=== PATIENT | female | born 1935 | race Caucasian/White ===

== ENCOUNTER → 2016-04-16 | Outpatient (CLI) | payer MEDICARE, OTHER ==
--- NOTE | 2016-04-16 14:40 | RAD ---
EXAM DESCRIPTION: Abdomen radiography. CLINICAL HISTORY: Abdominal pain. COMPARISON: None. TECHNIQUE: One view. FINDINGS: Bowel gas pattern is non-obstructed. There is no obvious free intraperitoneal air. Visualized segments of the abdominal organs are unremarkable. No suspicious bone lesion or fracture is seen. Severe levoscoliosis noted. IMPRESSION: No large kidney stone on today's study. Small kidney stones could be missed due to extensive overlying air and stool. Electronically signed by: Benson Brasher MD 04/16/2016 14:38
== END ==
LOC: RAD 13:16
PROVIDERS: ATTEND Urology
DX: N20.0 Calculus of kidney (principal)

== ENCOUNTER → 2016-08-28 | Outpatient (CLI) | payer MEDICARE, OTHER | LOC: GRHH 08:56 | PROVIDERS: ATTEND Family Medicine | DX: E55.9 Vitamin D deficiency, unspecified (principal); E53.8 Deficiency of other specified B group vitamins; D64.9 Anemia, unspecified; E78.5 Hyperlipidemia, unspecified; R53.81 Other malaise; N18.2 Chronic kidney disease, stage 2 (mild); R53.82 Chronic fatigue, unspecified ==

== ENCOUNTER → 2016-10-11 | Outpatient (CLI) | payer MEDICARE, OTHER | LOC: GRHH 10:23 | PROVIDERS: ATTEND Family Medicine | DX: R30.9 Painful micturition, unspecified (principal) ==

== ENCOUNTER → 2016-10-30 | Outpatient (CLI) | payer MEDICARE, OTHER | END | disposition home or self-care (01) | LOC: GMAM 14:38 | PROVIDERS: ATTEND Family Medicine | DX: R10.84 Generalized abdominal pain (principal) ==

== ENCOUNTER → 2016-11-02 | Outpatient (CLI) | payer MEDICARE, OTHER ==
--- NOTE | 2016-11-01 07:55 | CT ---
EXAM DESCRIPTION: Abdomen t/Pelvis w/o Contrast CLINICAL HISTORY: 81 years, 81 years, Female, Female, ABD PAIN COMPARISON: None. TECHNIQUE: CT of the abdomen and pelvis is performed according to our non contrast protocol This exam was performed according to our departmental dose-optimization program, which includes automated exposure control, adjustment of the mA and/or kV according to patient size and/or use of iterative reconstruction technique. FINDINGS: The lung bases are clear with mild elevation of the left hemidiaphragm. No infiltrates or effusions or masses noted. The stomach is large and distended with a large air-fluid level without evidence of gastric wall thickening or inflammatory changes extrinsic to the stomach. An element of gastroenteritis or gastroparesis or the possibility of an element of gastric outlet obstruction cannot be excluded. Severe degenerative changes and severe levoscoliosis of the lumbar spine is present without bony destructive changes with intact bony pelvis. Noncontrast imaging of the upper abdomen demonstrates a benign cyst in the medial right lobe of the liver approximately 2 cm in diameter. A small normal spleen is present. The pancreas is atrophic and distorted by the scoliosis. The adrenal glands are unremarkable. The right kidney is essentially unremarkable on noncontrast imaging. On the left fullness in the renal hilum likely represents parapelvic cysts without cortical mass or cyst identified. Hydronephrosis is felt not to be present. The gallbladder is normally distended without stones or wall thickening or ductal dilation. Large and small bowel caliber is normal with surgical absence of the uterus within the pelvis. Moderate left colonic diverticulosis is noted. Localized inflammatory changes in the right lower quadrant or left lower quadrant are not apparent. No abdominal free air or fluid is seen. No abnormality of the anterior abdominal wall is noted. The aorta is tortuous and calcified without significant aneurysm and no retroperitoneal adenopathy seen. IMPRESSION: 1. Large distended stomach with a prominent air-fluid level suggesting an element of gastroenteritis, gastroparesis, or the possibility of a gastric outlet obstruction with no evidence of distal small bowel or colonic obstruction. 2. Marked degenerative disc disease and levoscoliosis of the lumbar spine. 3. Extensive colonic diverticulosis and evidence of prior hysterectomy. 4. Benign right lobe hepatic cyst in prominent cystic changes in the left renal hilum most consistent with multiple parapelvic cysts. Electronically signed by: Ori Ibrahim MD 11/01/2016 7:54 AM CDT
--- NOTE | 2016-11-02 09:23 | US ---
EXAM DESCRIPTION: Gall Bladder CLINICAL HISTORY: 81 years, Female, ABD PAIN COMPARISON: None. FINDINGS: Head and body pancreas unremarkable. Pancreatic tail not well seen. Gallbladder does not demonstrate stones or wall thickening. Common bile duct 4 mm. Intrahepatic ducts not dilated. Liver 13 cm in length with normal echotexture. Benign-appearing hepatic cyst right lobe about 1.7 cm. Right kidney 8.5 cm with some mild chronic appearing cortical thinning. Visualized IVC unremarkable. IMPRESSION: Gallbladder and biliary system unremarkable. Incidental note of benign-appearing hepatic cyst and mild chronic renal cortical thinning. Study otherwise unremarkable Electronically signed by: Kirk Hernandez MD 11/02/2016 9:22 AM CDT
== END | disposition home or self-care (01) ==
LOC: CT 10-31 08:48
PROVIDERS: ATTEND Family Medicine
DX: M54.5 Low back pain (principal); R10.84 Generalized abdominal pain

== ENCOUNTER → 2016-11-06 | Outpatient (CLI) | payer MEDICARE, OTHER ==
--- NOTE | 2016-11-06 16:05 | MRI ---
EXAM DESCRIPTION: Lumbar Spine w/o Contrast CLINICAL HISTORY: 81 years,Female,LUMBAR RADICULOPATHY COMPARISON: None TECHNIQUE: MRI before multiple sequences of the lumbar spine. FINDINGS: The vertebral bodies demonstrate no acute signal changes. There is severe levoscoliosis apex at L3. With a rotary component to the clockwise direction is looking at the axial images. Which is to the left. L1-2 demonstrates a shift to the left of 6 members. And L4 is shifted to the right relative to L5 of 1.5 cm.. Spinal cord normal signal and morphology. Tip of the conus is at L1. Surrounding soft tissues demonstrates scattered edema in the left gluteus muscles partially included in the exam. L5-S1: Disk height is severe loss on the left aspect. There is mild annular disc bulge. The facettes moderate hypertrophy. There is no spinal canal stenosis. There is moderate left neural foraminal stenosis due to more focal disc bulge of about 6 mm and facet osteophyte and none on the right. L4-5: Disk height is severe loss. There is moderate annular disc bulge measuring about 5 mm in thickness. The facettes severely hypertrophic on the left and right with some mild subluxation. There is moderate spinal canal stenosis across the entire width of the spinal canal due to mostly the facet hypertrophy but and the disc bulges well. There is mild left and moderate right neural foraminal stenosis. L3-4: Disk height is severe loss on the right aspect. There is mild annular disc bulge. The facettes moderate to severe bilateral hypertrophy. There is moderate right spinal canal stenosis due to the facet hypertrophy. There is moderate right neural foraminal stenosis. L2-3: Disk height is severe loss disc height on the right. There is mild to moderate annular disc bulge worse in the posterior lateral aspects. The facettes moderate hypertrophy worse on the right. There is no spinal canal stenosis. There is moderate right neural foraminal stenosis. L1-2: Disk height is severe loss. There is mild annular disc bulge. The facettes moderate to mild bilateral facet hypertrophy. There is no spinal canal stenosis. There is mild bilateral neural foraminal stenosis. IMPRESSION: Lumbar spine demonstrates severe levo degenerative scoliosis at the mid levels. This is resulting from severe loss disc at the lower aspects at L2-3 and L3-4. Multiple disc bulges seen throughout the lumbar spine and facet arthropathy which is mostly severe to moderate to severe at the lower 3 lumbar levels. These results in multilevel neural foraminal stenosis as described above and also spinal canal stenosis which is more prominent and moderate at L4-5 and on the right aspect of the lateral recess at L3-4. Electronically signed by: Eliud Granda MD 11/06/2016 4:04 PM CDT
== END ==
LOC: MRI 12:44
PROVIDERS: ATTEND Family Medicine
DX: M54.16 Radiculopathy, lumbar region (principal); M41.9 Scoliosis, unspecified

== ENCOUNTER → 2017-01-25 | Outpatient (CLI) | payer MEDICARE, OTHER | END | disposition home or self-care (01) | LOC: GMAM 11:36 | PROVIDERS: ATTEND Family Medicine | DX: D64.9 Anemia, unspecified (principal); E53.8 Deficiency of other specified B group vitamins; E55.9 Vitamin D deficiency, unspecified ==

== ENCOUNTER 2017-04-09 10:25 | Inpatient (IN) | payer MEDICARE, OTHER ==
--- NOTE | 2017-04-09 12:08 | MRI ---
EXAM DESCRIPTION: Knee,Right: MRI. CLINICAL HISTORY: PAIN IN RIGHT KNEE COMPARISON: Duplex ultrasound evaluation right lower extremity deep veins on the same visit. TECHNIQUE: Multiplanar, high-field MRI, multiple sequences, without contrast: Right knee. FINDINGS: Significant joint space loss lateral compartment with subchondral edema lateral condyle and plateau and marginal spurs. Grade 4 chondrosis lateral plateau and femur. Posterior and downward subluxation of the posterior horn of the lateral meniscus with loss of substance and superior and inferior articular surface tears. Partial bucket-handle tear of the anterior horn which is flipped into the internal aspect of the lateral compartment with remnant remaining in the usual anatomic location. Moderate chondromalacia in the medial compartment with horizontal abnormal signal extending to the superior articular surface in the posterior horn and degenerative signal in the body and anterior horn. Marginal spurs no subchondral edema. Multiple cysts and edema with septations predominantly posterior medial soft tissues. Attenuation of the anterior cruciate ligament with increased fluidlike signal. Taut in extension. Posterior cruciate ligament is unremarkable. Inter-cruciate space effusion. Intermediate signal in the femoral insertion of the medial collateral ligament. Intermediate signal in the femoral insertion of the fibular collateral ligament. Intermediate signal in the popliteus tendon. Intermediate signal in the anterior fibular tibial ligament. Minimal soft tissue edema around the lateral collateral complex. Edema in the origin of the anterior tibialis muscle. No edema in the posterior muscles. Intermediate signal and laxity of the lateral patellar soft tissue restraints. Normal signal in the ITB. Normal signal in the medial patellar soft tissue restraints. Grade 4 chondrosis upper lateral patellar facet and also the superior apex. Grade 4 chondrosis inferior lateral trochlea. Narrowing of the medial and lateral joint space. Suprapatellar effusion with superior patellar plica. Intermediate signal in the distal quadriceps tendon. Edema anterior to the patellar tendon and the tibial tuberosity. Minimal edema in the infrapatellar fat pad. IMPRESSION: 1. Superior and inferior articular surface tears of the posterior horn of the lateral meniscus. Partial bucket-handle tear of the anterior horn displaced into the inner compartment. Grade 4 chondrosis lateral plateau and lateral condyle with significant joint space loss and effusion. Cannot exclude small osteochondral fracture on the lateral plateau. 2. Horizontal superior tear of the posterior horn of the medial meniscus. Moderate chondromalacia and minimal joint space loss. Multiple posterior Marie's cysts or soft tissue edema. 3. Moderate sprain of the anterior cruciate ligament with intercruciate space effusion. Degenerative signal in multiple elements of the lateral collateral ligament complex and also femoral insertion of the medial collateral ligament. 4. Narrowing of the patellofemoral joint. Grade 4 chondrosis on the lateral patellar facet, patellar apex, and lateral femoral trochlea. Degeneration of the distal quadriceps tendon. Suprapatellar effusion and superior patellar plica. Edema anterior to the patellar tendon and in Hoffa's fat pad. Degeneration in the lateral patellofemoral ligament. Electronically signed by: Jeancarlos Chapman MD 04/09/2017 12:06 PM [facility]
--- NOTE | 2017-04-09 12:22 | US ---
EXAM DESCRIPTION: Venous,Lower Extremity RT: ULTRASOUND. CLINICAL HISTORY: PAIN IN RIGHT KNEE COMPARISON: MRI scan right knee without contrast, on the same visit. TECHNIQUE: Two -dimensional and doppler sonographic evaluation of the deep venous system of the right lower extremity. FINDINGS: Echogenic thrombus in the posterior right popliteal vein with partial color flow and venous waveforms seen in the anterior vein. The vein incompletely compresses with the transducer. Similar findings in the right peroneal vein with echogenic thrombus posteriorly and diminished color flow and venous waveforms anteriorly. Incomplete occlusion by the transducer. Doppler evaluation shows normal color flow and normal phasicity and augmentation of the right common femoral vein, femoral vein, greater saphenous vein, and posterior tibial vein. These right lower extremity deep veins showed normal occlusion with transducer pressure. Two-dimensional survey showed no echogenic thrombus within these veins. Elongated serpentine complicated fluid collection in the right popliteal fossa as well as parenchymal edema. The region of involvement measures 6.7 x 3.8 x 3.2 cm. IMPRESSION: 1. Duplex ultrasound evaluation of the right lower extremity deep venous system showing partial thrombus in the right popliteal vein and right peroneal vein with restricted color flow and venous waveforms and incomplete compression/occlusion with the transducer. 2. No deep venous thrombosis in the remaining deep veins of the right lower extremity. 3. Elongated serpiginous Marie's cyst and edema in the right popliteal fossa. CRITICAL COMMUNICATION: The critical value was discussed directly by phone by the can reforming machine operator, PHOENIX Humphrey, with RADHA Thrasher at approximately 1215 hours, on April 09, 2017. Electronically signed by: Jeancarlos Chapman MD 04/09/2017 12:21 PM [facility]
--- NOTE | 2017-04-09 12:44 | HP ---
SUPERVISING PHYSICIAN: Lopez North M.D. CHIEF COMPLAINT: Right knee pain with evidence of DVT on current ultrasound of the right lower extremity. HISTORY OF PRESENT ILLNESS: Ms. Torres is an 81 year-old female patient of Dr. Harris. She has been having some right knee pain and leg pain for over a month that had slowly worsened. She denied any shortness of breath or chest pains. She presented to the clinic today and was seen by Irma Menchaca, who at that point ordered DVT studies of the right leg. Per radiology interpretation there was note that she had a partial thrombus in the right popliteal vein and right peroneal vein. There was no mention of any DVT to the right lower extremity veins other than mentioned above. Also of note was an elongated serpiginous Marie's cyst with some edema to the popliteal fossa. The patient also noted that she had had some right leg swelling that extended from the knee down to her toes when compared to her left leg. She denied any recent trauma or any lengthy episodes of travel. Given the findings of the sonogram, the patient is now going to be admitted directly for initiation of anticoagulation therapy. She was admitted in stable condition. PAST MEDICAL HISTORY: 1. Hyperlipidemia. 2. Chronic renal failure diagnosed in 2012. 3. Renal stones with a previous urethral stent placement and stent removal. 4. Osteopenia. 5. Hypertension with last echocardiogram in June 2015 that showed normal ventricular function with an estimated ejection fraction of 50% showing a grade 1 diastolic dysfunction. 6. Osteoporosis. PAST SURGICAL HISTORY: 1. Hysterectomy in 2002. 2. Bilateral tubal ligation. 3. Last colonoscopy was in [address] Duarte showing polyps and diverticula. 4. Temporary kidney stent placed and removed in October 2015 secondary to kidney stones. HOME MEDICATIONS: 1. Folic acid 1 tablet daily. 2. [place]-3 fatty acids 1 tablet daily. 3. Vitamin D 4,000 units daily. 4. Calcium gluconate 500 mg b.i.d. 5. Aspirin 81 mg daily. 6. Evista 60 mg daily. 7. Lisinopril 10 mg daily. ALLERGIES: NO KNOWN DRUG ALLERGIES. FAMILY HISTORY: Father at age 70, unknown reasons. Mother at age 85 secondary to cancer, unspecified, suspected to be colon. She has 2 brothers with coronary artery disease and back trouble. SOCIAL HISTORY: The patient lives in [place]. She is . She has never smoked tobacco. Denies any alcohol or illicit drug use. REVIEW OF SYSTEMS: CONSTITUTIONAL: Negative for fatigue or fever. HEENT: Negative for nasal congestion, frequent rhinorrhea, hoarseness or sore throat. CARDIOVASCULAR: Negative for any chest pains or orthopnea. RESPIRATORY: Negative for any recent cough, dyspnea or pleuritic chest pains. MUSCULOSKELETAL: As noted in History of Present Illness, positive for knee pain reported in the front and back of the knee worsening with standing. NEUROLOGIC: Denies any dizziness, syncopal episode or neurological deficits. PHYSICAL EXAMINATION: VITAL SIGNS: Temperature 97.8, pulse 78, blood pressure 174/95, respirations 16 , satting 99% on room air. Admission weight is 60.8 kg. GENERAL: On admission, the patient appeared comfortable in no acute distress. Well hydrated, well nourished. Alert and oriented. HEENT: Tympanic membranes are clear bilaterally. Oropharynx was pink, slightly dry mucosal membranes. There were no lesions noted. NECK: Supple, non-tender with full range of motion. No jugular venous distention. CHEST: Lungs were clear to auscultation without any rhonchi, wheezing or rales. CARDIOVASCULAR: Regular rate and rhythm without appreciable murmurs, gallops, or rubs. ABDOMEN: Soft, non-tender. Positive bowel sounds. EXTREMITIES: There was some noted moderate edema over the right knee to the ankle which was nonpitting. She does have some tenderness on the anterior and posterior aspect of the knee on palpation. No obvious bruising or trauma. Pulses distally were strong. Capillary refill was brisk. NEUROLOGIC: She was alert and oriented times three. Facial features were symmetrical. Extraocular movements are within normal limits. There was no notable nystagmus. Cranial nerves II-XII are grossly intact. LABORATORY STUDIES: CBC showed a white count of 5,400 with hemoglobin 10.9, hematocrit 33.6, platelet count 189,000. Differential showed to be within normal limits without a left shift. Chemistries showed normal electrolytes with a just slightly low CO2 at 20, BUN 23, creatinine 1.09, glucose 98. Liver functions were within normal limits. Coagulation studies were pending. Urinalysis shows trace intact blood with trace leukocyte esterase, otherwise microscopic was within normal limits. RADIOLOGY: She had a lower extremity Doppler study of the right leg prior to admission from the clinic which showed per radiology interpretation right lower extremity deep venous system showing partial thrombus in the right popliteal vein and right peroneal vein with a restricted color flow in venous forms incomplete compression with the transducer. Also of note was no deep venous thrombus in the remaining deep veins of the lower extremity. There was mention of an elongated serpiginous Marie's cyst and edema to the right popliteal fossa. She also had a knee MRI that was pending at time of admission. Chest x- ray two view chest per radiology interpretation showed no radiographic evidence of acute cardiopulmonary disease. ASSESSMENT: 1. Acute deep venous thrombus of the right peroneal and popliteal veins without any mention of trauma with the patient showing no evidence of a pulmonary embolism not previously on anticoagulation. 2. Hypertension on Lisinopril. 3. Osteoporosis. 4. History of kidney stones. 5. History of recently being treated for urinary tract infection by Dr. Gross with urinalysis pending at time of admission. 6. Osteoarthritis of the right knee. 7. Marie's cyst of the right knee. 8. Hyperlipidemia. 9. Mild renal insufficiency likely just prerenal azotemia secondary to dehydration. PLAN: The patient will be admitted to the Medical/Surgical floor for initiation of anticoagulant therapy initially with Lovenox 1 mg per kg with anticipation of starting on either Warfarin or Eliquis based off the patient's clinical condition and history, and ability to finance Xarelto. After we verify what her insurance can cover, we will initiate therapy in addition to the Lovenox. Should she need Warfarin, she certainly will be here at least 3 days until she becomes therapeutic or longer if needed until we can transition her home. Hopefully she will be able to transition to Xarelto. Until then, will continue with Lovenox. Her leg will be elevated when in bed. She will have SCDs on the left leg only. Will plan to repeat laboratory studies in the morning as appropriate and reevaluate clinically in the morning. In regards to dehydration, will go ahead and give her a bolus of saline as well as additional fluids and repeat laboratory studies in the morning to further assess her creatinine clearance estimates before starting her on Xarelto. Anticipate length of stay to be 2 to 3 days. Once discharged, she will need close monitoring and followup with Dr. Cornell, her primary care provider, as she will be on senior living anticoagulation therapy. Again until then, will continue to monitor and treat appropriately. #[id number] [facility]
[2017-04-09] MEDS ORDERED: ACETAMINOPHEN 325 MG TAB PO PRN (13:01)
[2017-04-09] MEDS ORDERED: MAGNESIUM HYDROXIDE 30 ML UD PO PRN (13:01)
[2017-04-09] MEDS ORDERED: SODIUM CHLORIDE 0.9% (FLUSH) 10 ML SYG IV PRN (13:01)
[2017-04-09] MEDS ORDERED: ALUM & MAG HYDROX-SIMETHICONE 30 ML UD PO PRN (13:01)
[2017-04-09] MEDS ORDERED: HYDROcodone 5MG/APAP 325MG 1 EA TAB PO PRN (13:01)
[2017-04-09] MEDS ORDERED: IV SET AND CAP CHANGE INJ INJ SCH (13:30)
[2017-04-09] MEDS ORDERED: SODIUM CHLORIDE 0.9% 1000ML 1,000 ML IVS ONE (14:08)
[2017-04-09] MEDS: ENOXAPARIN SODIUM 60 MG/0.6 ML SYG SUBCU SCH (15:15)
--- NOTE | 2017-04-09 15:55 | RAD ---
EXAM DESCRIPTION: Chest,2 Views CLINICAL HISTORY: RLE DVT COMPARISON: January 25, 2017. FINDINGS: Two-view chest x-ray mild enlargement of the cardiac silhouette without pulmonary vascular congestion. There is moderate tortuosity of the thoracic aorta with scattered calcified plaque. Dextrocurvature of the lower thoracic to lumbar spine is seen. The lungs are normally aerated and clear. Costophrenic angles are sharp. Mild disc degenerative changes of the spine are noted. IMPRESSION: No radiographic evidence of acute cardiopulmonary disease. Electronically signed by: Jorge Whiting MD 04/09/2017 3:54 PM [facility]
[2017-04-09] MEDS: KCL 20MEQ/0.45% NS 1,000 ML IVS PRN (17:09)
--- NOTE | 2017-04-09 20:28 | PCM.CORE ---
Physician DVT/VTE - Prophylaxis Currently: Patient already on anticoagulation therapy - xarelto - Nurse DVT Assessment & Total Each Risk Factor Represents 3 Points: Age over 75 years, Hx of DVT/PE Each Risk Factor is 1 Point: Varicose Veins/Edema Legs, Obesity (BMI >25) DVT Assessment Score: 8 - 5 or more Very High Risk Treatments: Early Ambulation *, Sequential Compression Device
[2017-04-10] MEDS: ENOXAPARIN SODIUM 60 MG/0.6 ML SYG SUBCU SCH (02:55)
[2017-04-10] MEDS: KCL 20MEQ/0.45% NS 1,000 ML IVS PRN (03:58)
[2017-04-10] MEDS: ASPIRIN EC 81 MG TAB PO SCH (09:26)
[2017-04-10] MEDS: CALCIUM CARBONATE-VITAMIN D 500 MG TAB PO SCH ×2 (09:34→21:57)
[2017-04-10] MEDS: RIVAROXABAN 10 MG TAB PO SCH (09:34)
[2017-04-10] MEDS: LISINOPRIL 10 MG TAB PO SCH (09:34)
[2017-04-10] MEDS: FOLIC ACID,B6,B12 1 TAB PO SCH (09:35)
[2017-04-10] MEDS: amLODIPine BESYLATE 5 MG TAB PO SCH (09:35)
[2017-04-10] MEDS: FISH OIL 1,200 MG CAP PO SCH (09:36)
[2017-04-10] MEDS: CHOLECALCIFEROL 2,000 IU TAB PO SCH (10:00)
[2017-04-10] MEDS: SODIUM CHLORIDE 0.9% (FLUSH) 10 ML SYG IV SCH ×2 (10:01→21:57)
[2017-04-10] MEDS: NON-FORMULARY MEDICATION 1 EA MIS (Raloxifene Hcl [Evista] 60 MG) PO SCH (10:08)
--- NOTE | 2017-04-10 14:52 | PN ---
SUPERVISING PHYSICIAN: Lopez North MD DATE: 04/10/17 SUBJECTIVE: The patient is doing well clinically. She is not having any significant shortness of breath, no chest pain. She continues to have her leg elevated which is showing good improvement with decreasing swelling. I did found out that her insurance does cover either Xarelto or Eliquis and after discussion with Dr. Cornell, the patient will be started on Xarelto today. I will attempt to get a starter pack from Dr. Cornell's office. OBJECTIVE: VITAL SIGNS: Temperature 98.5. Pulse 79. Blood pressure 151/75. Radiographs 16. Saturation 99% on room air. I&Os show positive balance of 1245 with 1345 in. She has had multiple voids that were not measured. Weight 61.6 kg. CHEST: Lungs clear to auscultation bilaterally. HEART: Regular rate and rhythm without appreciable murmurs, gallops, or rubs. ABDOMEN: Soft, nontender. Positive bowel sounds. EXTREMITIES: Right lower extremity still shows some swelling compared to the left leg, but decreased from admission. Pulses distally are strong with capillary refill brisk. NEUROLOGIC: Alert and oriented times three. LABORATORY: CBC showed a white count of 4,300 with hemoglobin 10.7, hematocrit 32.9 which is stable. Platelet count 185,000. Differential within normal limits. Coagulation studies today showed normal PT, PT-T. Chemistries showed normal electrolytes with BUN 18, creatinine 1.02, which is improved from admission, with calcium 9.2. Urinalysis showed just a trace of blood and trace of leukocyte esterase, otherwise within normal limits both on microscopic and chemical analysis. ASSESSMENT: 1. Deep venous thrombus of the right lower extremity with evidence of a thrombus within the right peroneal and popliteal veins on ultrasound with no mention of trauma with the patient showing no evidence of a pulmonary embolism and not previously on anticoagulation. She has previously been on Evista which could be a possible etiology of the thrombus. Therefore, we have stopped this medication as well as she will need further studies to further rule out any underlying malignancy such as CT of the lungs, abdomen which can be done on discharge. 2. Hypertension on lisinopril, requiring addition of amlodipine. 3. Osteoporosis, osteopenia, having previously been on Evista with this being stopped as possible etiology of her venous thrombus. 4. History of kidney stones. 5. History of recently being treated for urinary tract infection by Dr. Gross with urinalysis at this time showing no evidence of underlying infection. 6. Osteoarthritis of the right knee. 7. Marie's cyst of the right knee. 8. Hyperlipidemia. 9. Mild renal insufficiency likely prerenal azotemia secondary to mild dehydration as she showed good improvement with IV fluids. PLAN: The patient has a normal PT, PT-T and has been on Lovenox now for 24 hours and will be started on Xarelto today. I did discuss with Dr. Cornell in regard to getting her a starter pack and continuing with this as an outpatient. I also discussed her blood pressure and as Dr. Cornell requested, we will add amlodipine 2.5 mg and monitor closely. At some point, she will need sentinel studies to rule out underlying malignancy as possible source of the thrombus to include a CT of the head, chest and abdomen which all could be done in followup through Dr. Cornell's office. She continues to keep her leg elevated. I discussed at length with her the [facility] treatment plan and that there is no contraindication to her being mobile, just to keep her leg elevated when she is not walking to assist with the edema. She is very aware of the side effects of Xarelto and is happy with the choice with having previously had concerns with being on warfarin as she has a daughter who is on dialysis and has been on warfarin in the past. I saline locked her. She is showing good hydration status. Again, we will anticipate discharging tomorrow with a Xarelto starter pack with close clinical followup with Dr. Cornell within the next 2 weeks or sooner if needed as well as recommendations for CT scans of the head, chest and abdomen as mentioned above to further rule out any source of malignancy for possible etiology of her underlying DVT as well as we have stopped her Evista as this could be an etiology of the thrombus. Until discharge, we will continue to monitor the patient closely and treat appropriately. #[id number] [facility]
[2017-04-11] MEDS: FISH OIL 1,200 MG CAP PO SCH (08:43)
[2017-04-11] MEDS: SODIUM CHLORIDE 0.9% (FLUSH) 10 ML SYG IV SCH (08:43)
[2017-04-11] MEDS: LISINOPRIL 10 MG TAB PO SCH (08:44)
[2017-04-11] MEDS: FOLIC ACID,B6,B12 1 TAB PO SCH (08:44)
[2017-04-11] MEDS: ASPIRIN EC 81 MG TAB PO SCH (08:44)
[2017-04-11] MEDS: CHOLECALCIFEROL 2,000 IU TAB PO SCH (08:44)
[2017-04-11] MEDS: RIVAROXABAN 10 MG TAB PO SCH (08:45)
[2017-04-11] MEDS: amLODIPine BESYLATE 5 MG TAB PO SCH (08:45)
[2017-04-11] MEDS: NON-FORMULARY MEDICATION 1 EA MIS (Raloxifene Hcl [Evista] 60 MG) PO SCH (08:49)
[2017-04-11] MEDS ORDERED: CALCIUM CARBONATE-VITAMIN D 500 MG TAB PO SCH (09:00)
[2017-04-11 10:48] VITALS: BP 122/73; TEMP 97.9; O2SAT 98
--- NOTE | 2017-04-11 11:46 | DS ---
SUPERVISING PHYSICIAN: Lopez North MD DISCHARGE DIAGNOSIS: 1. Deep venous thrombus of the right lower extremity with evidence of a thrombus within the right peroneal and popliteal veins on ultrasound with no mention of trauma with the patient showing no evidence of a pulmonary embolism and not previously on anticoagulation. She has previously been on Evista which could be a possible etiology of the thrombus. 2. Hypertension on lisinopril and amlodipine. 3. Osteoporosis, osteopenia, having previously been on Evista. 4. History of kidney stones. 5. History of recently being treated for urinary tract infection by sameer Chavez. 6. Osteoarthritis of the right knee. 7. Marie's cyst of the right knee. 8. Hyperlipidemia. 9. Mild renal insufficiency, improved. HISTORY OF PRESENT ILLNESS: This an 81-year-old female patient that was seen by nurse practitioner, Irma Menchaca in clinic. She is a patient of Dr. Harris. She had been having some right knee pain and right leg pain for over a month that had slowly worsened. She denied any shortness of breath or chest pains. She presented to the clinic and DVT studies were ordered of the right leg. Per radiology interpretation there was note that she had a partial thrombus in the right popliteal vein and right peroneal vein. There was no mention of any DVT to the right lower extremity veins other than mentioned above. There was also an elongated serpiginous Marie's cyst with some edema to the popliteal fossa. The patient stated she had had some right leg swelling that extended from the knee down to her toes when compared to her left leg. She denied any recent trauma or any lengthy episodes of travel. Due to the findings of the sonogram, she was admitted to the hospital for initiation of anticoagulation therapy. HOSPITAL COURSE: The patient was started on Lovenox and transitioned to Xarelto. Her Lovenox has been discontinued. She was also given amlodipine due to her elevated blood pressures and her vital signs have stabilized. She has had some mild to that right leg, but has been well controlled with pain medications. Her Evista was stopped and at this point, she can be discharged home. DISCHARGE PLAN: The patient will be discharged home in stable condition. She is to resume her previous activity as tolerated as well as her diet. I have discontinued her Evista and she has been given a starter pack for Xarelto that will include 15 mg twice a day for 21 days and then she will increase to 20 mg daily. She has a followup appointment with Dr. Cornell on April 16, 2017, with consideration of getting a CT scan of the head, chest and abdomen to rule out any source of malignancy for possible etiology of her underlying DVT and/or she could see hematology as an outpatient. She is to return to the hospital or call Dr. Cornell's office with any further complications or problems. I have instructed her on signs and symptoms of increased bleeding and her questions were answered. DISCHARGE MEDICATIONS: 1. Calcium gluconate. 2. Aspirin. 3. [place] 3 fatty acids. 4. Lisinopril. 5. Folbee. 6. Vitamin D. 7. Amlodipine. 8. Xarelto starter pack. 9. Tramadol. Dr. North is the collaborating physician and available for consultation. #[id number] [facility]
== END 2017-04-11 12:10 | disposition home or self-care (01) | DRG 300 ==
LOC: CT 10:25 → MS 12:43
PROVIDERS: ADMIT Nurse Practitioner Family; ATTEND Nurse Practitioner Acute Care
DX: I82.431 Acute embolism and thrombosis of right popliteal vein (principal); I13.0 Hypertensive heart and chronic kidney disease with heart failure and stage 1 through stage 4 chronic kidney disease, or unspecified chronic kidney disease; I50.32 Chronic diastolic (congestive) heart failure; E86.0 Dehydration; T38.5X5A Adverse effect of other estrogens and progestogens, initial encounter; M81.0 Age-related osteoporosis without current pathological fracture; M85.80 Other specified disorders of bone density and structure, unspecified site; M17.11 Unilateral primary osteoarthritis, right knee; E78.5 Hyperlipidemia, unspecified; N28.9 Disorder of kidney and ureter, unspecified; M71.21 Synovial cyst of popliteal space [Baker], right knee; N18.9 Chronic kidney disease, unspecified; Y92.009 Unspecified place in unspecified non-institutional (private) residence as the place of occurrence of the external cause; Z95.828 Presence of other vascular implants and grafts; Z79.82 Long term (current) use of aspirin

== ENCOUNTER → 2017-05-21 | Outpatient (CLI) | payer MEDICARE, OTHER | LOC: GMAM 18:17 | PROVIDERS: ATTEND Family Medicine | DX: N39.0 Urinary tract infection, site not specified (principal) ==

== ENCOUNTER → 2017-08-13 | Outpatient (CLI) | payer MEDICARE, OTHER | LOC: GMAM 11:00 | PROVIDERS: ATTEND Family Medicine | DX: E53.8 Deficiency of other specified B group vitamins (principal); E55.9 Vitamin D deficiency, unspecified ==

== ENCOUNTER → 2017-09-16 | Outpatient (CLI) | payer MEDICARE, OTHER ==
--- NOTE | 2017-09-16 21:01 | US ---
EXAM DESCRIPTION: Venous,Lower Extremity RT: ULTRASOUND. CLINICAL HISTORY: DVT COMPARISON: None Available. TECHNIQUE: Pedroza-scale and doppler sonographic evaluation of the deep venous system of the right lower extremity. FINDINGS: Doppler evaluation shows normal color flow and normal phasicity and augmentation of the right common femoral vein, femoral vein, popliteal vein, greater saphenous vein, peroneal, and posterior tibial vein. The right lower extremity deep veins showed normal occlusion with transducer pressure. Pedroza-scale survey showed no echogenic thrombus within these veins. Complex serpiginous fluid collection in the popliteal fossa. Dimensions 7.1 x 3.6 x 3.2 cm.. IMPRESSION: 1. Duplex ultrasound evaluation of the right lower extremity deep venous system showing no evidence of thrombosis. 2. Serpiginous somewhat complex Marie's cyst in the popliteal fossa measuring 7.1 cm. Electronically signed by: Jeancarlos Chapman MD 09/16/2017 9:00 PM CDT
== END ==
LOC: US 09:54
PROVIDERS: ATTEND Family Medicine
DX: M71.21 Synovial cyst of popliteal space [Baker], right knee (principal); I80.201 Phlebitis and thrombophlebitis of unspecified deep vessels of right lower extremity

== ENCOUNTER → 2018-04-21 | Outpatient (CLI) | payer MEDICARE, OTHER | LOC: GMAM 10:35 | PROVIDERS: ATTEND Family Medicine | DX: E53.8 Deficiency of other specified B group vitamins (principal); E55.9 Vitamin D deficiency, unspecified ==

== ENCOUNTER → 2018-04-23 | Outpatient (CLI) | payer MEDICARE, OTHER | LOC: GMAM 14:22 | PROVIDERS: ATTEND Family Medicine | DX: D64.9 Anemia, unspecified (principal) ==

== ENCOUNTER → 2018-10-16 | Outpatient (CLI) | payer MEDICARE, OTHER | LOC: GMAM 10:46 | PROVIDERS: ATTEND Family Medicine | DX: E53.8 Deficiency of other specified B group vitamins (principal); E55.9 Vitamin D deficiency, unspecified ==

== ENCOUNTER → 2019-11-04 | Outpatient (CLI) | payer MEDICARE, OTHER | LOC: GMAM 14:56 | PROVIDERS: ATTEND Family Medicine | DX: D64.9 Anemia, unspecified (principal); E78.2 Mixed hyperlipidemia; I10 Essential (primary) hypertension; E55.9 Vitamin D deficiency, unspecified ==

== ENCOUNTER 2020-01-06 17:15 | Observation (INO) | payer MEDICARE, OTHER ==
--- NOTE | 2020-01-06 17:25 | HP ---
SUPERVISING PHYSICIAN: Ori Cornell MD CHIEF COMPLAINT: Increasing shortness of breath. HISTORY OF PRESENT ILLNESS: Ms. Torres is an 84-year-old female patient with past medical history of significant coronary artery disease, hypertension, chronic renal failure who was diagnosed with COVID pneumonitis today in the clinic. Her is currently in the hospital with COVID pneumonia. The family reports that since her has been in the hospital, she has significantly declined. They notified Dr. Cornell and he requested the patient come to the clinic to be tested. After examination and testing, it was decided the patient would at least be in observation overnight to ensure that she was not acutely showing any worsening signs or symptoms secondary to COVID infection. She was directly admitted in stable condition. PAST MEDICAL HISTORY: 1. Coronary artery disease with 3 stents. 2. Hypertension. 3. Chronic renal failure. 4. History of renal stones with stent placement. 5. Osteopenia. 6. Anxiety and depression. 7. Iron deficiency anemia. PAST SURGICAL HISTORY: 1. Hysterectomy. 2. Bilateral tubal ligation. 3. Bilateral cataracts. 4. Previous kidney stents due to multiple kidney stones. 5. Heart caths and 3 stent placements in [place] in 2018. MEDICATIONS: Awaiting updated list from the clinic for updated list in medical records. ALLERGIES: NO KNOWN DRUG ALLERGIES. FAMILY HISTORY: Father at age 70, unknown cause of . Mother at age 85 secondary to colon cancer. She had 2 brothers, one with history of Parkinson's and coronary artery disease. She has one sister who has had a stroke and myocardial infarction and is . She has a 34-year-old son with congestive heart failure. Another son is from complications of HIV. She has 3 daughters. One had a stroke at age 59. 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 She denies any tobacco, alcohol or illicit drug use. REVIEW OF SYSTEMS: CONSTITUTIONAL: Positive for general malaise, weakness. No reported fevers at home. HEENT: Negative for headaches, sore throats, earaches, nasal congestion. RESPIRATORY: Positive for increasing shortness of breath and coughing. No reported wheezing. CARDIOVASCULAR: Negative for chest pain, palpitations or syncopal episodes. GASTROINTESTINAL: Positive for decreased appetite. Negative for nausea, vomiting or abdominal pain. GENITOURINARY: Negative for dysuria, hematuria, polyuria. MUSCULOSKELETAL: Positive for generalized weakness. No reported arthralgias. SKIN: Negative for lesions, rashes, moles or unexplained changes. NEUROLOGIC: Negative for ataxia, seizures. Positive for ongoing weakness. No reported focal deficits. HEMATOLOGIC: Negative for easy bruising, unexplained bleeding or transfusion reactions. PHYSICAL EXAMINATION: VITAL SIGNS: Temperature 99.6, pulse 69, blood pressure 130/72, respirations 19, saturation 98% on room air. GENERAL: The patient is resting comfortably in no acute distress. RESPIRATORY: Lung sounds are fairly clear, just a little diminished towards the bases. No rales, rhonchi or wheezing. CARDIOVASCULAR: Regular rate and rhythm without any appreciable murmurs, gallops, or rubs. ABDOMEN: Soft, nontender. Positive bowel sounds. EXTREMITIES: There is no edema. NEUROLOGIC: The patient is alert and oriented times three. SKIN: Warm, pink and dry. LABORATORY: White count 3,300 with low lymphocytes. Hemoglobin 9.7, hematocrit 29.6, platelet count 220,000. Coagulation studies showed fibrinogen 346 with D- dimer 370. Chemistries showed normal C-reactive protein. Troponin less than 0.02. Electrolytes all within normal limits. BUN 22, creatinine 1.14. Ferritin 6.9. Urinalysis pending. MICROBIOLOGY: No specimens pending. RADIOLOGY: Chest x-ray pending. ASSESSMENT: 1. COVID-19 infection with developing generalized weakness and concerns for developing worsening symptoms. 2. History of coronary artery disease. 3. History of hypertension. 4. History of chronic renal failure. 5. History of anxiety and depression. PLAN: Ms. Torres is going to be placed in observation overnight with close monitor and recheck of labs. She is living essentially by herself since her is in the hospital and he has COVID. She did test positive for COVID today. We will be fairly aggressive with her treatment given her age and underlying comorbidities. We will start her on Decadron, Rocephin, azithromycin and Remdesivir. We will hold off on large amount of fluids and give those cautiously if needed. I anticipate length of stay to be at least 1 to 2 days. Once her medications are updated and verified, we will resume those as appropriate to care. Until the patient can transition to outpatient management, we will continue to monitor and treat as needed. #[id number] MTDD
[2020-01-06] MEDS ORDERED: ACETAMINOPHEN 325 MG TAB PO PRN (17:42)
[2020-01-06] MEDS ORDERED: ONDANSETRON INJ 4 MG/2 ML VIAL IV PRN (17:42)
[2020-01-06] MEDS ORDERED: SODIUM CHLORIDE 0.9% (FLUSH) 10 ML SYG IV PRN (17:42)
[2020-01-06] MEDS ORDERED: ALBUTEROL INHALER 64 PUFF/8GM INH PRN (17:46)
[2020-01-06] MEDS ORDERED: REMDESIVIR 200 MG in SODIUM CHLORIDE 0.9% 250ML 250 ML IVPB ONE (17:47)
[2020-01-06] MEDS ORDERED: AZITHROMYCIN IV 500 MG in SODIUM CHLORIDE 0.9% 250ML 250 ML IVPB SCH (18:00)
[2020-01-06] MEDS ORDERED: cefTRIAXone SODIUM 1 GM in SODIUM CHL 0.9% 50ML MIN-BAG+ 50 ML IVPB SCH (18:00)
[2020-01-06] MEDS ORDERED: IV SET AND CAP CHANGE INJ INJ SCH (18:00)
[2020-01-06] MEDS ORDERED: AZITHROMYCIN IV 500 MG VIAL IVPB ONE (19:26)
[2020-01-06] MEDS ORDERED: cefTRIAXone SODIUM 1 GM VIAL ONE (19:26)
[2020-01-06] MEDS ORDERED: SODIUM CHL 0.9% 50ML MIN-BAG+ 50 ML IVPB ONE (19:27)
[2020-01-06] MEDS ORDERED: SODIUM CHLORIDE 0.9% 250ML 250 ML ONE ×2 (19:27→19:29)
[2020-01-06] MEDS: DEXAMETHASONE INJ 10 MG/ML VIAL IV SCH (20:13)
[2020-01-06] MEDS: ALBUTEROL INHALER 64 PUFF/8GM INH SCH (20:15)
[2020-01-07] MEDS ORDERED: cefTRIAXone SODIUM 1 GM in SODIUM CHL 0.9% 50ML MIN-BAG+ 50 ML IVPB SCH (01:52)
[2020-01-07] MEDS ORDERED: PANTOPRAZOLE SODIUM IV 40 MG VIAL IV SCH (06:30)
--- NOTE | 2020-01-07 07:06 | RAD ---
CLINICAL HISTORY: COVID pneumonitis COMPARISON: 04/09/2018. TECHNIQUE: XR CHEST 1 VIEW 01/07/2020 7:00 AM CDT FINDINGS: The heart is borderline in size. Lungs are clear without consolidation, atelectasis, mass or edema. There is no pleural effusion. There is no pneumothorax. There are no acute osseous findings. IMPRESSION: No pneumonia. Electronically signed by: Olvin Vizcarra MD 01/07/2020 7:04 AM CDT
[2020-01-07] MEDS ORDERED: CLOPIDOGREL 75 MG TAB ONE (08:34)
[2020-01-07] MEDS ORDERED: ISOSORBIDE MONONITRATE (IMDUR) 30 MG TAB ONE (08:34)
[2020-01-07] MEDS ORDERED: ESCITALOPRAM 10 MG TAB ONE (08:34)
[2020-01-07] MEDS: ALBUTEROL INHALER 64 PUFF/8GM INH SCH ×4 (08:55→21:30)
[2020-01-07] MEDS: [UNRECOGNIZED DRUG - OTHER] PO SCH (09:27)
[2020-01-07] MEDS: B COMPLEX PO SCH (09:27)
[2020-01-07] MEDS: FOLIC ACID PO SCH (09:27)
[2020-01-07] MEDS: REMDESIVIR 100 MG in SODIUM CHLORIDE 0.9% 250ML 250 ML IVPB SCH (09:28)
[2020-01-07] MEDS: DEXAMETHASONE INJ 10 MG/ML VIAL IV SCH (09:28)
[2020-01-07] MEDS: CLOPIDOGREL 75 MG TAB PO SCH (09:29)
[2020-01-07] MEDS: ISOSORBIDE MONONITRATE (IMDUR) 30 MG TAB PO SCH (09:29)
[2020-01-07] MEDS: ACETAMINOPHEN 325 MG TAB PO SCH ×2 (09:29→20:05)
[2020-01-07] MEDS: ESCITALOPRAM 10 MG TAB PO SCH (09:29)
[2020-01-07] MEDS: BIFIDOBACTERIUM INFANTIS 4 MG CAP PO SCH (09:33)
[2020-01-07] MEDS: ENOXAPARIN SODIUM 40 MG/0.4 ML SYG SUBCU SCH (09:33)
[2020-01-07] MEDS: DORZOLAMIDE 2% OPHTH SOL 1 DROP LEFT_EYE SCH ×2 (09:33→22:16)
[2020-01-07] MEDS ORDERED: ATORVASTATIN 10 MG TAB ONE (19:51)
[2020-01-07] MEDS ORDERED: METOPROLOL SUCCINATE XL 25 MG TAB PO ONE (19:51)
[2020-01-07] MEDS ORDERED: ASPIRIN (ENTERIC COATED) 81 MG TAB PO ONE (19:51)
[2020-01-07] MEDS ORDERED: cefTRIAXone SODIUM 1 GM VIAL ONE (19:53)
[2020-01-07] MEDS ORDERED: AZITHROMYCIN IV 500 MG VIAL IVPB ONE (19:53)
[2020-01-07] MEDS ORDERED: SODIUM CHL 0.9% 50ML MIN-BAG+ 50 ML IVPB ONE (19:54)
[2020-01-07] MEDS ORDERED: SODIUM CHLORIDE 0.9% 250ML 250 ML ONE (19:54)
[2020-01-07] MEDS: ASPIRIN (ENTERIC COATED) 81 MG TAB PO SCH (20:05)
[2020-01-07] MEDS: METOPROLOL SUCCINATE XL 25 MG TAB PO SCH (20:05)
[2020-01-07] MEDS: ATORVASTATIN 10 MG TAB PO SCH (20:05)
[2020-01-07] MEDS: cefTRIAXone SODIUM 1 GM in SODIUM CHL 0.9% 50ML MIN-BAG+ 50 ML IVPB SCH (21:53)
[2020-01-07] MEDS: AZITHROMYCIN IV 500 MG in SODIUM CHLORIDE 0.9% 250ML 250 ML IVPB SCH (23:07)
[2020-01-08] MEDS ORDERED: PANTOPRAZOLE SODIUM TAB 40 MG PO ONE (02:58)
[2020-01-08] MEDS: PANTOPRAZOLE SODIUM TAB 40 MG PO SCH (05:54)
[2020-01-08] MEDS ORDERED: SODIUM CHLORIDE 0.9% 250ML 250 ML ONE (07:06)
[2020-01-08] MEDS: ACETAMINOPHEN 325 MG TAB PO SCH ×3 (07:22→20:55)
[2020-01-08] MEDS ORDERED: POTASSIUM CHLORIDE 20 MEQ TAB PO ONE (08:27)
--- NOTE | 2020-01-08 08:53 | PN ---
SUPERVISING PHYSICIAN: Ori Cornell MD DATE: 01/07/20 SUBJECTIVE: The patient is feeling pretty good. She has not had any shortness of breath. She is not complaining of abdominal pain, no nausea or vomiting, she just says she is weak. OBJECTIVE:: VITAL SIGNS: Temperature 98, pulse 88, blood pressure 150/73, respirations 20, oxygen saturation 99% on room air.' GENERAL: The patient seems to be resting comfortably, no acute distress. He is alert. CHEST: Clear to auscultation, sill diminished towards the bases. HEART: Regular rate and rhythm. ABDOMEN: Soft, non-tender, positive bowel sounds. EXTREMITIES: Without edema. NEUROLOGIC: He is alert and oriented x3. LABORATORY: White count shows to be at 1,500 with differential showing to be without a left shift. Coagulation studies show a D-dimer of 437, chemistries today show BUN 21, creatinine 0.93, potassium normal. Carbon dioxide a little low at 19, glucose 121. Liver functions and magnesium all within normal limits. C-reactive protein remains normal at less than 0.8. Urinalysis last night showed a trace of leukoesterase with 20 to 30 WBCs, 3 to 5 epithelials, no bacteria, moderate amount of blood. MICROBIOLOGY: Urine cultures pending. RADIOLOGY: Chest x-ray today per radiology interpretation shows no pneumonia. ASSESSMENT: 1. COVID-19 infection with developing generalized weakness and concerns for developing worsening symptoms. 2. History of coronary artery disease. 3. History of hypertension. 4. History of chronic renal failure. 5. History of anxiety and depression. PLAN: Will continue current plan at this point with assist from Dr. North, azithromycin and Remdesivir. DVT prophylaxis per protocol, aggressive pulmonary hygiene. I anticipate he should hopefully be able to go home within the next 48 hours, depends on how well she does and what her condition is when he is discharged. Until then, we will continue to monitor. [facility][id number] [facility]
[2020-01-08] MEDS: DEXAMETHASONE INJ 10 MG/ML VIAL IV SCH (09:38)
[2020-01-08] MEDS: REMDESIVIR 100 MG in SODIUM CHLORIDE 0.9% 250ML 250 ML IVPB SCH (09:38)
[2020-01-08] MEDS: ENOXAPARIN SODIUM 40 MG/0.4 ML SYG SUBCU SCH (09:38)
[2020-01-08] MEDS: BIFIDOBACTERIUM INFANTIS 4 MG CAP PO SCH (09:39)
[2020-01-08] MEDS: CLOPIDOGREL 75 MG TAB PO SCH (09:39)
[2020-01-08] MEDS: ISOSORBIDE MONONITRATE (IMDUR) 30 MG TAB PO SCH (09:39)
[2020-01-08] MEDS: ESCITALOPRAM 10 MG TAB PO SCH (09:39)
[2020-01-08] MEDS: ALBUTEROL INHALER 64 PUFF/8GM INH SCH ×4 (09:45→21:07)
[2020-01-08] MEDS: FOLIC ACID PO SCH (09:56)
[2020-01-08] MEDS: B COMPLEX PO SCH (09:56)
[2020-01-08] MEDS: [UNRECOGNIZED DRUG - OTHER] PO SCH (09:56)
[2020-01-08] MEDS: DORZOLAMIDE 2% OPHTH SOL 1 DROP LEFT_EYE SCH ×2 (09:57→21:12)
--- NOTE | 2020-01-08 14:42 | CT ---
EXAM DESCRIPTION: Chest w/o Contrast CLINICAL HISTORY: 84 years Female, covid TECHNIQUE: This exam was performed according to our departmental dose-optimization program, which includes automated exposure control, adjustment of the mA and/or kV according to patient size and/or use of iterative reconstruction technique. COMPARISON: Same day chest radiograph FINDINGS: The thyroid gland is unremarkable. No axillary adenopathy. Dense coronary artery and mitral annular calcifications. No pericardial effusion. No evidence of acute process in the visualized upper abdomen. No mediastinal adenopathy. No pneumothorax. No pleural effusion. Scattered peripheral groundglass airspace opacities. No focal consolidation. No suspicious pulmonary nodule. Calcified granuloma. No acute or suspicious osseous abnormality. Scattered degenerative changes present. IMPRESSION: Scattered peripheral groundglass airspace opacities which are most likely infectious. Consider viral etiologies. Electronically signed by: Grayson Irwin MD 01/08/2020 2:40 PM CDT
--- NOTE | 2020-01-08 16:47 | PN ---
SUPERVISING PHYSICIAN: Ori Cornell MD DATE: 01/08/20 SUBJECTIVE: The patient is sitting up in bed. She feels much better and is less weak than she has been although she is somewhat apprehensive about getting around. I have ordered physical therapy on her. OBJECTIVE: VITAL SIGNS: Temperature 98, heart rate 73, blood pressure 152/72, respiratory rate 18, O2 saturation 98% on room air. LABORATORY: WBCs 3,500 with hemoglobin 9.3, hematocrit 28.6. Fibrinogen is 297. D-dimer 418. Sodium 142, potassium 3.3, chloride 115. BUN 22, creatinine 0.95. Calcium 8.8, magnesium 1.8, creatinine kinase 147, C-reactive protein less than 0.8. Urine culture preliminary study shows gram negative rods. Chest CT shows scattered peripheral airspace opacities which are most likely infectious. Consider viral etiologies. All other labs and films have been reviewed via the EMR. ASSESSMENT: 1. COVID-19 infection with developing generalized weakness and concerns for developing worsening symptoms. 2. History of coronary artery disease. 3. History of hypertension. 4. History of chronic renal failure. 5. History of anxiety and depression. PLAN: We will continue present supportive care. I have given her some potassium supplementation and have ordered COVID lab for in the morning. I discussed her discharge plan with Dr. Cornell most likely for tomorrow. If she is stable, we will discharge her home. #[id number] MTDD
[2020-01-08] MEDS: ASPIRIN (ENTERIC COATED) 81 MG TAB PO SCH (20:54)
[2020-01-08] MEDS: ATORVASTATIN 10 MG TAB PO SCH (20:55)
[2020-01-08] MEDS: METOPROLOL SUCCINATE XL 25 MG TAB PO SCH (20:55)
[2020-01-08] MEDS: cefTRIAXone SODIUM 1 GM in SODIUM CHL 0.9% 50ML MIN-BAG+ 50 ML IVPB SCH (21:24)
[2020-01-08] MEDS: AZITHROMYCIN IV 500 MG in SODIUM CHLORIDE 0.9% 250ML 250 ML IVPB SCH (23:17)
[2020-01-09] MEDS: PANTOPRAZOLE SODIUM TAB 40 MG PO SCH (06:05)
[2020-01-09] MEDS: ACETAMINOPHEN 325 MG TAB PO SCH ×2 (07:05→08:56)
[2020-01-09] MEDS: DEXAMETHASONE INJ 10 MG/ML VIAL IV SCH (08:52)
[2020-01-09] MEDS: ENOXAPARIN SODIUM 40 MG/0.4 ML SYG SUBCU SCH (08:52)
[2020-01-09] MEDS: BIFIDOBACTERIUM INFANTIS 4 MG CAP PO SCH (08:53)
[2020-01-09] MEDS: CLOPIDOGREL 75 MG TAB PO SCH (08:53)
[2020-01-09] MEDS: [UNRECOGNIZED DRUG - OTHER] PO SCH (08:53)
[2020-01-09] MEDS: FOLIC ACID PO SCH (08:53)
[2020-01-09] MEDS: REMDESIVIR 100 MG in SODIUM CHLORIDE 0.9% 250ML 250 ML IVPB SCH (08:53)
[2020-01-09] MEDS: ESCITALOPRAM 10 MG TAB PO SCH (08:53)
[2020-01-09] MEDS: B COMPLEX PO SCH (08:53)
[2020-01-09] MEDS: ISOSORBIDE MONONITRATE (IMDUR) 30 MG TAB PO SCH (08:53)
[2020-01-09] MEDS: DORZOLAMIDE 2% OPHTH SOL 1 DROP LEFT_EYE SCH (08:56)
[2020-01-09] MEDS: ALBUTEROL INHALER 64 PUFF/8GM INH SCH ×2 (09:10→12:30)
[2020-01-09] MEDS: POTASSIUM CHLORIDE 20 MEQ TAB PO SCH ×2 (10:21→13:14)
[2020-01-09] MEDS ORDERED: POTASSIUM CHLORIDE 20 MEQ TAB ONE ×2 (10:21→12:47)
[2020-01-09] MEDS ORDERED: MAGNESIUM SULFATE PREMIX 2GM 2 GM in PREMIX BAG 1 BAG IVPB ONE (12:26)
[2020-01-09] MEDS ORDERED: MAGNESIUM SULFATE PREMIX 2GM 50 ML IVPB ONE (12:46)
[2020-01-09] MEDS ORDERED: INFLUENZA VIRUS VACC (ADULT) 0.5 ML SYG IM ONE (13:15)
[2020-01-09 14:05] VITALS: BP 150/71; TEMP 98.1; O2SAT 99
--- NOTE | 2020-01-10 15:47 | DS ---
SUPERVISING PHYSICIAN: Ori Cornell M.D. DISCHARGE DIAGNOSIS: 1. COVID-19 pneumonitis with generalized weakness. 2. Coronary artery disease. 3. Hypertension. 4. Chronic renal failure. 5. History of anxiety and depression. HISTORY OF PRESENT ILLNESS: This is an 84-year-old female patient who has a past medical history of coronary artery disease, hypertension and chronic renal failure. She was diagnosed with COVID pneumonitis on the day of admission at the clinic. Her was currently in the hospital with COVID pneumonia. Over the days prior to her diagnoses she had significantly declined with some extreme weakness. Her primary care physician, Dr. Cornell, requested that the patient be admitted to the hospital in stable condition and to be treated for COVID pneumonitis. HOSPITAL COURSE: The patient was placed in observation with the COVID guidelines being started. Her labs were monitored closely. She was also started on the pneumonia guidelines with azithromycin and Rocephin. She was placed on Lovenox for DVT prophylaxis as well as Decadron, IV steroids and Remdesivir. A small amount of fluids were given judiciously and she responded to treatment and improved during her hospital stay. Her weakness improved to the point that she actually was evaluated by physical therapy and they felt that she was stable to be discharged home. Her vital signs remained stable. She was not on oxygen. Her lab improved daily. She will be discharged home today in stable condition. LABORATORY: WBCs on admission were 1.5, were then 3.5 and today are 4.3. Hemoglobin and hematocrit are stable at 9.8 and 30.1. PTT on admission was 21.7 and then was 22.1. Fibrinogen was stable at 307, D-dimer on admission was 437 and is now 332. Sodium is stable at 139. Potassium started at 3.8 and went down to 3.3 and has required supplementation over the last several days. Chloride was initially 112 and went to 115 and is now 112. Carbon dioxide is 18, BUN 24, creatinine 0.98. Glucose are in between 86 and 121, calcium was stable at 8.6, magnesium initially was 1.9 and went down to 1.7 and required supplementation. Liver enzymes were within normal limits. LD was 108 to 155, creatinine kinase was 147, troponin 0.03. C reactive protein was less than 0.8. Urinalysis showed moderate urine blood with trace of urine leukocyte esterase and 20 to 30 urine RBCs. Urine culture was positive for Escherichia coli and was pansensitive. RADIOLOGY: Chest x-ray showed no pneumonia. Chest CT showed scattered peripheral ground glass airspace opacities which are most likely infectious. Consider viral etiologies. DISCHARGE PLAN: The patient will be discharged home in stable condition. She is to resume her previous diet and increase her activity as tolerated. She has a followup appointment with Dr. Cornell via Telehealth on 01/13/20 at 10:45 AM. In addition to her routine medications, she is to take: 1. Align. 2. 7 days of Cefdinir. 3. 6 days of Decadron. 4. 30 days of Eliquis. 5. Guaifenesin. 6. Albuterol treatments. 7. 4 days of azithromycin. She is to return to the hospital or followup with Dr. Cornell for any problems or complications. DISCHARGE MEDICATIONS: 1. Aspirin. 2. Lexapro. 3. Plavix. 4. Lipitor. 5. Isosorbide mononitrate. 6. Tylenol. 7. Metoprolol. 8. Dorzolamide ophthalmic. 9. Acetaminophen. 10. B complex. 11. Vitamin C vitamins. 12. Align. 13. Cefdinir. 14. Decadron. 15. Eliquis. 16. Guaifenesin. 17. Albuterol. 18. Azithromycin. #[id number] [facility]
== END 2020-01-09 14:50 | disposition home or self-care (01) ==
LOC: MS 17:15 → INTOOBSV 17:15
PROVIDERS: ADMIT Nurse Practitioner Family; ATTEND Nurse Practitioner Acute Care
DX: U07.1 COVID-19 (principal); J12.89 Other viral pneumonia; R53.1 Weakness; I25.10 Atherosclerotic heart disease of native coronary artery without angina pectoris; I12.9 Hypertensive chronic kidney disease with stage 1 through stage 4 chronic kidney disease, or unspecified chronic kidney disease; N18.9 Chronic kidney disease, unspecified; F41.9 Anxiety disorder, unspecified; F32.9 Major depressive disorder, single episode, unspecified; M85.80 Other specified disorders of bone density and structure, unspecified site; Z79.02 Long term (current) use of antithrombotics/antiplatelets; Z79.01 Long term (current) use of anticoagulants; Z79.82 Long term (current) use of aspirin; Z79.899 Other long term (current) drug therapy; Z95.5 Presence of coronary angioplasty implant and graft; Z87.442 Personal history of urinary calculi
CPT/HCPCS: 96366 ×3; 96367 ×2; 96365; 96375 ×2; 96376 ×4; 96372 ×3; J0696 ×3; 90674; J7050 ×12; J1650 ×3; J1100 ×4; J0456 ×3; A4216; J3475; 85379 ×4; 80048 ×2; 80053 ×3; 87086; 36415 ×4; 85384 ×4; 81001; 80076; 86140 ×4; 85025 ×4; 82550 ×2; 87186; 82728; 83615 ×4; 83735 ×5; 85730 ×2; 84484 ×2; 87088; 71045; 71250; 94760; 94664; 94640 ×10; 94762 ×4; 97116; 97162; G0378

== ENCOUNTER 2020-01-10 07:27 | Emergency (ER) | payer MEDICARE, OTHER ==
[2020-01-10] MEDS ORDERED: SODIUM CHLORIDE 0.45% 1000ML 1,000 ML IVS ONE (09:04)
--- NOTE | 2020-01-10 09:05 | CT ---
EXAM DESCRIPTION: Abdoment/Pelvis w/o Contrast CLINICAL HISTORY: 84 years Female lower abd pain at Lovenox sites COMPARISON: 10/31/2016 TECHNIQUE: Multiple contiguous axial CT slices were taken from the diaphragms to the pubic symphysis without intravenous contrast. This exam was performed according to our departmental dose-optimization program, which includes automated exposure control, adjustment of the mA and/or kV according to patient size and/or use of iterative reconstruction technique. FINDINGS: Within the left rectus muscle sheath. There is a 6.2 x 6.0 x 14.3 cm heterogeneously hyperdense fluid collection, consistent with an intramuscular hematoma. There is some surrounding subcutaneous fat stranding along the left anterior abdominal wall. The lung bases are clear. Visualized cardiomediastinal structures are normal. No suspicious hepatic lesions. 2.8 cm cyst in the right hepatic lobe. Gallbladder, bile ducts, pancreas, spleen and adrenals are normal. Bilateral renal cortical thinning. Prominent bilateral parapelvic cysts. No urinary tract calculi. The ureters and bladder are normal. A small amount of extraperitoneal/preperitoneal fluid is seen within the ventral pelvis. The uterus is absent. No adnexal masses. Hiatal hernia. The small bowel is normal. The appendix is normal. The large bowel is normal. No ascites, pneumatosis or pneumoperitoneum. No lymphadenopathy. The aorta and IVC are normal. Scoliosis and spondylosis. Bilateral hip arthrosis. No acute osseous abnormality. IMPRESSION: 1. Large acute 14.3 cm left rectus muscle sheath hematoma. Electronically signed by: David Clifford MD 01/10/2020 9:04 AM CDT
[2020-01-10] MEDS ORDERED: HYDROcodone 7.5MG/APAP 325MG 1 EA TAB PO ONE (09:18)
[2020-01-10] MEDS ORDERED: SODIUM BICARBONATE VIAL 50 MEQ/50 ML VIAL ONE (09:57)
--- NOTE | 2020-01-10 15:13 | ED.PDOC ---
History of Present Illness - General Chief Complaint: Abdominal Pain Stated Complaint: Abd pain and side lying nausea Time Seen by Provider: 01/10/20 07:28 Source: patient, family Exam Limitations: no limitations - History of Present Illness Initial Comments: The patient is a 84-year-old female presented emergency room secondary to abdominal pain. The patient had some abdominal pain yesterday but it worsened overnight. It is worse with any movement. No nausea or vomiting. No constipation. No diarrhea. She does have a known rectal prolapse. Discomfort is worse in the left mid to lower abdomen centrally. Timing/Duration: other - About 18 hours Severity: moderate Improving Factors: immobilization Worsening Factors: movement Associated Symptoms: denies symptoms Allergies/Adverse Reactions: Allergies NO KNOWN ALLERGY Allergy (Verified 01/10/20 07:48) Home Medications: Ambulatory Orders Aspirin [Aspirin Adult Low Dose] 81 mg PO BEDTIME 10/31/15 Acetaminophen [Tylenol] 650 mg PO BEDTIME 01/06/20 Atorvastatin Calcium [Lipitor] 10 mg PO BEDTIME 01/06/20 Clopidogrel Bisulfate [Plavix] 75 mg PO DAILY 01/06/20 Dorzolamide HCl 1 drop LEFT_EYE BID 01/06/20 Escitalopram [Lexapro] 10 mg PO DAILY 01/06/20 Isosorbide Mononitrate [Isosorbide Mononitrate ER] 30 mg PO DAILY 01/06/20 Metoprolol Succinate [Metoprolol Succinate ER] 25 mg PO BEDTIME 01/06/20 Acetaminophen [Tylenol] 325 mg PO DAILY 01/07/20 Acetaminophen [Tylenol] 650 mg PO ACBK 01/07/20 B-Complex W/ C & Folic Acid [Super B-Complex/Vitamin C] 1 tablet PO DAILY 01/07/20 Albuterol Inhaler [Ventolin Hfa Inhaler] 2 puff INH PRN PRN inh 01/09/20 Albuterol Inhaler [Ventolin Hfa Inhaler] 2 puff INH RTQID inh 01/09/20 Apixaban [Eliquis] 5 mg PO BID #60 tab 01/09/20 Azithromycin Tab [Zithromax Tab] 250 mg PO QD #4 tab 01/09/20 Bifidobacterium Infantis [Align] 4 mg PO DAILY cap 01/09/20 Cefdinir 300 mg PO BID #14 capsule 01/09/20 Dexamethasone Tab [Decadron Tab] 4 mg PO DAILY #6 tab 01/09/20 Guaifenesin [Mucinex] 600 mg PO BID #30 tab 01/09/20 Review of Systems - Review of Systems Constitutional: States: no symptoms reported EENTM: States: no symptoms reported Respiratory: States: no symptoms reported Cardiology: States: no symptoms reported Gastrointestinal/Abdominal: States: abdominal pain Genitourinary: States: no symptoms reported Musculoskeletal: States: no symptoms reported Skin: States: no symptoms reported Neurological: States: no symptoms reported Endocrine: States: no symptoms reported Hematologic/Lymphatic: States: no symptoms reported All other Systems: No Change from Baseline Past Medical History (General) - Patient Medical History Hx Seizures: No Hx Stroke: No Hx Dementia: No Hx Asthma: No Hx of COPD: No Hx Cardiac Disorders: Yes - stents Hx Congestive Heart Failure: No Hx Pacemaker: No Hx Hypertension: Yes Hx Thyroid Disease: No Hx Diabetes: No Hx Gastroesophageal Reflux: No Hx Renal Disease: No Hx Cancer: No Hx of HIV: No Hx Hepatitis C: No Hx MRSA: No Surgical History: Hysterectomy, other - Vaccination History Hx Tetanus, Diphtheria Vaccination: No Hx Influenza Vaccination: Yes Hx Pneumococcal Vaccination: No - Social History Hx Tobacco Use: No Hx Alcohol Use: No Hx Substance Use: No Hx Substance Use Treatment: No Hx Depression: No Hx Physical Abuse: No Hx Emotional Abuse: No - Female History Patient is a Female of Child Bearing Age (10 -59 yrs old): No Patient : No Family Medical History - Family History Mother Family History: No Known Living Status: Physical Exam - Physical Exam General Appearance: Alert, No apparent distress Eye Exam: bilateral normal Ears, Nose, Throat: hearing grossly normal, normal pharynx Neck: non-tender, supple Respiratory: lungs clear, normal breath sounds, no respiratory distress, no accessory muscle use Cardiovascular/Chest: normal peripheral pulses, regular rate, rhythm, no edema Peripheral Pulses: radial,right: 2+, radial,left: 2+ Gastrointestinal/Abdominal: other - See history of present illness. Rectal Exam: other - Rectal prolapse is present but no evidence of significant pain with it. This does appear chronic. 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, alert, normal mood/affect, oriented x 3 Skin Exam: pallor - Mildly pale Comments: Vital Signs - 24 hr 01/10/20 01/10/20 01/10/20 07:27 07:28 08:00 Temperature 96.8 F L Pulse Rate [ 99 H 99 H 73 Pulse ox] Respiratory 22 22 22 Rate Blood Pressure 99/60 115/75 [R arm] O2 Sat by Pulse 99 98 Oximetry 01/10/20 01/10/20 01/10/20 09:00 10:00 11:00 Temperature Pulse Rate [ 65 63 76 Pulse ox] Respiratory 18 18 18 Rate Blood Pressure 132/65 127/65 148/75 [R arm] O2 Sat by Pulse 94 L 98 94 L Oximetry 01/10/20 01/10/20 01/10/20 12:00 13:00 14:00 Temperature Pulse Rate [ 68 67 71 Pulse ox] Respiratory 18 16 18 Rate Blood Pressure 156/69 128/81 136/66 [R arm] O2 Sat by Pulse 98 96 96 Oximetry 01/10/20 15:00 Temperature Pulse Rate [ 73 Pulse ox] Respiratory 18 Rate Blood Pressure 138/68 [R arm] O2 Sat by Pulse 95 Oximetry Progress - Progress Progress: 01/10/20 15:15 The patient is an 84-year-old female presented emergency room secondary to abdominal pain. The patient appears to have developed a abdominal rectus sheath hematoma likely from the Lovenox injections on Eliquis. Blood thinners including aspirin will be discontinued for at least the next 4 days. The patient has been monitored for an extended period of time here in the emergency room for repeat blood levels as well as for receiving a small fluid bolus. Blood levels have dropped a little bit but the drop was after the IV fluids were administered. There is not appear to be any evidence of any intra- abdominal bleeding, it appears to be contained within the rectus sheath. The patient has been resting comfortably after a small dose of hydrocodone. No e vidence of nausea or vomiting. She is pleasant and cooperative and apparently in her baseline mental state. The patient does have a mildly low bicarbonate level. This has improved with rehydration. She did appear to be mildly dehydrated. I do want her to have a repeat CBC and BMP in 24 to 48 hours. Hemoglobin and hematocrit are essentially 8 and 24 at this point in time. They were almost this low on the of this month as well. Obviously if the patient is worsening in any way then I do want to see her back here immediately. She may yet have to have a small blood transfusion. That is not indicated at this time however. From the pulmonary standpoint, she appears to be tolerating the coronavirus quite well. Continue other medications besides blood thinners. ER warnings are given. She will likely have discomfort in that area for the next 3 weeks or so. She will be written for a small prescription for tramadol for as needed use. [email or web address] [id number] - Results/Orders Results/Orders: 01/10/20 07:45 EKG STAT shows normal sinus rhythm at 68 bpm. Normal R wave progression. Mild left atrial dilation. T wave inversion in lead III and aVF. No ST segment changes consistent with ischemia. Borderline QT interval. Laboratory Results - last 24 hr 01/10/20 01/10/20 01/10/20 08:08 08:08 08:08 WBC 9.2 RBC 3.22 L Hgb 8.7 L Hct 27.4 L MCV 85.0 MCH 27.1 MCHC 31.9 L RDW 16.0 H Plt Count 259 MPV 8.8 Absolute Neuts (auto) 7.70 H Absolute Lymphs (auto) 0.90 L Absolute Monos (auto) 0.60 Absolute Eos (auto) 0.00 Absolute Basos (auto) 0.00 Neutrophils % 83.4 H Lymphocytes % 9.7 L Monocytes % 6.8 Eosinophils % 0.0 L Basophils % 0.1 PT 10.9 INR 1.10 PTT (SP) 22.5 D-Dimer, Quantitative 529.0 H Sodium 136 Potassium 4.1 Chloride 110 Carbon Dioxide 14 L* Anion Gap 16.1 BUN 35 H D Creatinine 1.28 BUN/Creatinine Ratio 27.3 H Random Glucose 189 H D Serum Osmolality 285.0 Lactic Acid Calcium 8.6 Total Bilirubin 0.5 AST 35 ALT 24 Alkaline Phosphatase 43 Creatine Kinase 82 CK-MB (CK-2) 5.6 H* CK-MB (CK-2) % Not Reportable Troponin I 0.03 C-Reactive Protein Serum Total Protein 5.3 L Albumin 3.1 L Globulin 2.2 L Albumin/Globulin Ratio 1.4 01/10/20 01/10/20 01/10/20 08:08 11:44 11:44 WBC RBC Hgb 8.0 L Hct 24.5 L MCV MCH MCHC RDW Plt Count MPV Absolute Neuts (auto) Absolute Lymphs (auto) Absolute Monos (auto) Absolute Eos (auto) Absolute Basos (auto) Neutrophils % Lymphocytes % Monocytes % Eosinophils % Basophils % PT INR PTT (SP) D-Dimer, Quantitative Sodium 138 Potassium 4.2 Chloride 110 Carbon Dioxide 18 L Anion Gap 14.2 BUN 37 H Creatinine 1.19 BUN/Creatinine Ratio 31.1 H Random Glucose 147 H Serum Osmolality 287.1 Lactic Acid Calcium 8.4 Total Bilirubin AST ALT Alkaline Phosphatase Creatine Kinase CK-MB (CK-2) CK-MB (CK-2) % Troponin I C-Reactive Protein 1.1 H D Serum Total Protein Albumin Globulin Albumin/Globulin Ratio 01/10/20 01/10/20 11:44 14:44 WBC RBC Hgb 7.9 L* Hct 24.0 L MCV MCH MCHC RDW Plt Count MPV Absolute Neuts (auto) Absolute Lymphs (auto) Absolute Monos (auto) Absolute Eos (auto) Absolute Basos (auto) Neutrophils % Lymphocytes % Monocytes % Eosinophils % Basophils % PT INR PTT (SP) D-Dimer, Quantitative Sodium Potassium Chloride Carbon Dioxide Anion Gap BUN Creatinine BUN/Creatinine Ratio Random Glucose Serum Osmolality Lactic Acid 2.0 Calcium Total Bilirubin AST ALT Alkaline Phosphatase Creatine Kinase CK-MB (CK-2) CK-MB (CK-2) % Troponin I C-Reactive Protein Serum Total Protein Albumin Globulin Albumin/Globulin Ratio CT scan abdomen pelvis shows a cyst on the liver as well as a left hematoma that is 6 m x 6 m x 14 cm Departure - Departure Clinical Impression: Dehydration, Coronavirus infection Rectus sheath hematoma Qualifiers: Encounter type: initial encounter Qualified Code(s): S30.1XXA - Contusion of abdominal wall, initial encounter Anemia Qualifiers: Anemia type: other cause Other causes of anemia: other cause, not classified Qualified Code(s): D64.89 - Other specified anemias Disposition: Discharge to Home or Self Care Condition: Fair Departure Forms: ED Discharge - Pt. Copy, Patient Portal Self Enrollment Diet: regular diet Activity: increase activity as tolerated Referrals: Ori Esteban MD [Primary Care Provider] - 1-2 Weeks Home Medications: Ambulatory Orders Aspirin [Aspirin Adult Low Dose] 81 mg PO BEDTIME 10/31/15 Acetaminophen [Tylenol] 650 mg PO BEDTIME 01/06/20 Atorvastatin Calcium [Lipitor] 10 mg PO BEDTIME 01/06/20 Clopidogrel Bisulfate [Plavix] 75 mg PO DAILY 01/06/20 Dorzolamide HCl 1 drop LEFT_EYE BID 01/06/20 Escitalopram [Lexapro] 10 mg PO DAILY 01/06/20 Isosorbide Mononitrate [Isosorbide Mononitrate ER] 30 mg PO DAILY 01/06/20 Metoprolol Succinate [Metoprolol Succinate ER] 25 mg PO BEDTIME 01/06/20 Acetaminophen [Tylenol] 325 mg PO DAILY 01/07/20 Acetaminophen [Tylenol] 650 mg PO ACBK 01/07/20 B-Complex W/ C & Folic Acid [Super B-Complex/Vitamin C] 1 tablet PO DAILY 01/07/20 Albuterol Inhaler [Ventolin Hfa Inhaler] 2 puff INH PRN PRN inh 01/09/20 Albuterol Inhaler [Ventolin Hfa Inhaler] 2 puff INH RTQID inh 01/09/20 Apixaban [Eliquis] 5 mg PO BID #60 tab 01/09/20 Azithromycin Tab [Zithromax Tab] 250 mg PO QD #4 tab 01/09/20 Bifidobacterium Infantis [Align] 4 mg PO DAILY cap 01/09/20 Cefdinir 300 mg PO BID #14 capsule 01/09/20 Dexamethasone Tab [Decadron Tab] 4 mg PO DAILY #6 tab 01/09/20 Guaifenesin [Mucinex] 600 mg PO BID #30 tab 01/09/20 Additional Instructions: The patient is an 84-year-old female presented emergency room secondary to abdominal pain. The patient appears to have developed a abdominal rectus sheath hematoma likely from the Lovenox injections on Eliquis. Blood thinners including aspirin will be discontinued for at least the next 4 days. The patient has been monitored for an extended period of time here in the emergency room for repeat blood levels as well as for receiving a small fluid bolus. Blood levels have dropped a little bit but the drop was after the IV fluids were administered. There is not appear to be any evidence of any intra- abdominal bleeding, it appears to be contained within the rectus sheath. The patient has been resting comfortably after a small dose of hydrocodone. No evidence of nausea or vomiting. She is pleasant and cooperative and apparently in her baseline mental state. The patient does have a mildly low bicarbonate level. This has improved with rehydration. She did appear to be mildly dehydrated. I do want her to have a repeat CBC and BMP in 24 to 48 hours. Hemoglobin and hematocrit are essentially 8 and 24 at this point in time. They were almost this low on the 15th of this month as well. Obviously if the patient is worsening in any way then I do want to see her back here immediately. She may yet have to have a small blood transfusion. That is not indicated at this time however. From the pulmonary standpoint, she appears to be tolerating the coronavirus quite well. Continue other medications besides blood thinners. ER warnings are given. She will likely have discomfort in that area for the next 3 weeks or so. She will be written for a small prescription for tramadol for as needed use.
[2020-01-10 16:27] VITALS: BP 145/66; TEMP 97.8; O2SAT 96
== END 2020-01-10 16:04 | disposition home or self-care (01) ==
LOC: ER 07:27
DX: U07.1 COVID-19 (principal); E86.0 Dehydration; S30.1XXA Contusion of abdominal wall, initial encounter; D64.89 Other specified anemias; K76.89 Other specified diseases of liver; I10 Essential (primary) hypertension; Z79.01 Long term (current) use of anticoagulants; Z79.82 Long term (current) use of aspirin; Z79.899 Other long term (current) drug therapy; Z79.02 Long term (current) use of antithrombotics/antiplatelets; Z98.61 Coronary angioplasty status; X58.XXXA Exposure to other specified factors, initial encounter; Y92.9 Unspecified place or not applicable
CPT/HCPCS: 36415; 36416; 74176; 80048; 80053; 82550; 82553; 83605; 84484; 85014; 85018; 85025; 85379; 85610; 85730; 86140; 93005; J7799

== ENCOUNTER → 2020-01-12 | Outpatient (CLI) | payer MEDICARE, OTHER | LOC: GMAM 15:20 | PROVIDERS: ATTEND Family Medicine | DX: U07.1 COVID-19 (principal); R71.8 Other abnormality of red blood cells; R09.02 Hypoxemia ==

== ENCOUNTER → 2020-01-13 | Outpatient (CLI) | payer MEDICARE, OTHER ==
[~2020-01-13] MED LIST: ACETAMINOPHEN 325 MG TAB PO ONE; FUROSEMIDE INJ 40 MG/4 ML VIAL IV ONE
[2020-01-14 16:11] VITALS: BP 146/75; TEMP 97.8; O2SAT 96
== END ==
LOC: INFRM 12:13
PROVIDERS: ATTEND Family Medicine
DX: D50.0 Iron deficiency anemia secondary to blood loss (chronic) (principal)
CPT/HCPCS: 86850; 86900; 86901; 86922; J1940; P9016